=== PATIENT | male | born 1995 | race Caucasian/White ===

== ENCOUNTER 2016-09-05 16:32 | Emergency (ER) | payer BC ==
--- NOTE | 2016-09-05 16:48 | CPEKG ---
Heart Rate: 99 RR Interval: 606 P-R Interval: 128 QRSD Interval: 86 QT Interval: 348 QTC Interval: 447 P [place]: 67 QRS [place]: 50 T Wave [place]: 20 EKG Severity - NORMAL ECG - EKG Impression: SINUS RHYTHM Electronically Signed By: Imani Ramirez 06-Sep-2016 00:42:46
[2016-09-05] MEDS ORDERED: LORazepam 2 MG/ML INJ IVP ONE (17:15)
[2016-09-05] MEDS ORDERED: NS 1,000 ML IV ONE (17:15)
[2016-09-05 17:37] VITALS: RESP 20; O2SAT 94
[2016-09-05 17:41] LABS: % IMMATURE GRANULYOCYTES 0.5 % (0.0-1.1); ABSOLUTE IMMATURE GRANULOCYTES 0.04 10^3/uL (0.00-0.10); ADD DIFF? NO; ADD MORPH? NO; ADD SCAN? NO; ATYPICAL LYMPHOCYTE FLAG 20 (0-99); FRAGMENT RBC FLAG 0 (0-99); HEMATOCRIT 44.3 % (40.0-51.0); HEMOGLOBIN 15.8 g/dL (13.7-17.5); LEFT SHIFT FLG 10 (0-99); LIPEMIA HEMOLYSIS FLAG 90 (0-99); MEAN CELL HEMOGLOBIN 29.9 pg (27.9-34.1); MEAN CELL HEMOGLOBIN CONCENTR. 35.7 g/dL (32.4-36.7); MEAN CELL VOLUME 83.7 fL (81.5-99.8); MEAN PLATELET VOLUME 9.8 fL (8.7-11.7); PLATELET CLUMPS FLAG 0 (0-99); PLATELET COUNT 218 10^3/uL (150-400); RED BLOOD CELL COUNT 5.29 10^6/uL (4.40-6.38); RED CELL DISTRIBUTION WIDTH 12.4 % (11.5-15.2)
--- NOTE | 2016-09-05 17:45 | EDPHY ---
H & P Stated Complaint: etoh/cocaine last night today with cp and l arm numbness Time Seen by Provider: 09/05/16 16:47 HPI/ROS: CHIEF COMPLAINT: Chest pain, arm discomfort HISTORY OF PRESENT ILLNESS: 21-year-old male who presents reporting that approximately an hour and a half ago he developed discomfort in the left side of his chest, sensation of palpitations and pounding heart, as well as some numbness into his left arm. Patient reports that last night he drank heavy amount of alcohol, used cocaine, and smoked a cigarette. He denies use of methamphetamines. Reports he uses cocaine infrequently, perhaps 5 times in his life. No cardiac history. States he was fine when he woke up this morning, had no nausea, headache, or chest pain at that time. Denies any anxiety. No history of hypertension, diabetes, chronic smoking, hypercholesterolemia, family history of coronary artery disease. No recent fevers or chills, cough, infectious symptoms, no history of DVT or PE. REVIEW OF SYSTEMS: Aside from elements discussed in the HPI, a comprehensive 10-point review of systems was reviewed and is negative. PAST MEDICAL HISTORY: Denies. SOCIAL HISTORY: Recent alcohol. VITAL SIGNS Reviewed by me. Tachycardic at triage to 105, heart rate in 80s on my examination. Afebrile. GENERAL: Well-developed, well-nourished, seem somewhat anxious. HEENT: Atraumatic. Eyes: No icterus, no injection. Mouth: moist mucous membranes. No erythema or lesions. Neck: supple with no adenopathy. LUNGS: Clear to auscultation bilaterally, no wheezes, rhonchi or rales. CHEST: No rash, no tenderness palpation. No crepitus. CARDIAC: Regular rate and rhythm, no rubs, murmurs or gallops. ABDOMEN: Soft, nontender, nondistended, bowel sounds normal. BACK: No CVA tenderness. EXTREMITIES: No trauma. No edema. Range of motion is normal throughout. NEURO: Alert and oriented, grossly nonfocal. SKIN: Warm and dry, no rash. PSYCHIATRIC: Normal mentation, no agitation. - Personal History Current Tetanus/Diphtheria Vaccine: Yes - Medical/Surgical History Hx Asthma: No Hx Chronic Respiratory Disease: No Hx Diabetes: No Hx Cardiac Disease: No Hx Renal Disease: No Hx Cirrhosis: No Hx Alcoholism: No Hx HIV/AIDS: No Hx Splenectomy or Spleen Trauma: No Other PMH: denies - Social History Smoking Status: Current some day smoker Constitutional: Initial Vital Signs Temperature (C) 36.3 C 09/05/16 16:35 Heart Rate 105 H 09/05/16 16:35 Respiratory Rate 22 H 09/05/16 16:35 Blood Pressure 121/74 H 09/05/16 16:35 O2 Sat (%) 96 09/05/16 16:35 O2 Delivery Mode Room Air Allergies/Adverse Reactions: No Known Allergies Allergy (Unverified 09/05/16 16:35) Home Medications: Medication Instructions Recorded NK [No Known Home Meds] 09/05/16 Medical Decision Making - Diagnostics EKG Interpretation: 12-LEAD EKG: Please see the full report in [facility]. My interpretation: Sinus rhythm, rate of 99. No ischemic changes Imaging: Imaging Impressions Chest X-Ray 09/05/16 17:15 IMPRESSION: Normal chest x-ray. Images reviewed and interpreted independently by myself. ED Course/Re-evaluation: 21-year-old male presenting with chest discomfort and left arm discomfort after using cocaine last night. Patient has no cardiac risk factors other than his illicit drug use. Troponin is negative. EKG has no ischemic changes. Patient's symptoms were relieved with Ativan. Patient was instructed to stop using illicit drugs. Differential Diagnosis: After history and physical examination, the differential for chest pain was considered, including but not limited to, myocardial ischemia, acute coronary syndrome, chest wall pain, pleural inflammation, anxiety, and pulmonary infectious causes. - Data Points Laboratory Results: Laboratory Results 09/05/16 17:30 09/05/16 17:30 09/05/16 09/05/16 17:30 17:30 WBC 7.86 10^3/uL 10^3/uL (3.80-9.50) RBC 5.29 10^6/uL 10^6/uL (4.40-6.38) Hgb 15.8 g/dL g/dL (13.7-17.5) Hct 44.3 % % (40.0-51.0) MCV 83.7 fL fL (81.5-99.8) MCH 29.9 pg pg (27.9-34.1) MCHC 35.7 g/dL g/dL (32.4-36.7) RDW 12.4 % % (11.5-15.2) Plt Count 218 10^3/uL 10^3/uL (150-400) MPV 9.8 fL fL (8.7-11.7) Neut % (Auto) 73.1 % % (39.3-74.2) Lymph % (Auto) 16.2 % % (15.0-45.0) [place] % (Auto) 8.9 % % (4.5-13.0) Eos % (Auto) 0.8 % % (0.6-7.6) Baso % (Auto) 0.5 % % (0.3-1.7) Nucleat RBC Rel Count 0.0 % % (0.0-0.2) Absolute Neuts (auto) 5.75 10^3/uL 10^3/uL (1.70-6.50) Absolute Lymphs (auto) 1.27 10^3/uL 10^3/uL (1.00-3.00) Absolute Monos (auto) 0.70 10^3/uL 10^3/uL (0.30-0.80) Absolute Eos (auto) 0.06 10^3/uL 10^3/uL (0.03-0.40) Absolute Basos (auto) 0.04 10^3/uL 10^3/uL (0.02-0.10) Absolute Nucleated RBC 0.00 10^3/uL 10^3/uL (0-0.01) Immature Gran % 0.5 % % (0.0-1.1) Immature Gran # 0.04 10^3/uL 10^3/uL (0.00-0.10) Sodium 139 mEq/L mEq/L (134-144) Potassium 3.8 mEq/L mEq/L (3.5-5.2) Chloride 103 mEq/L mEq/L (97-110) Carbon Dioxide 26 mEq/l mEq/l (22-31) Anion Gap 10 mEq/L mEq/L (8-16) BUN 22 mg/dL mg/dL (7-23) Creatinine 1.0 mg/dL mg/dL (0.7-1.3) Estimated GFR > 60 Glucose 136 mg/dL H mg/dL (70-100) Calcium 9.6 mg/dL mg/dL (8.5-10.4) Troponin I < 0.012 ng/mL ng/mL (0-0.034) Lipase 130.0 IU/L IU/L (23-300) Medications Given: Discontinued Medications Sodium Chloride (Ns) 1,000 mls @ 0 mls/hr IV ONCE ONE PRN Reason: Wide Open Stop: 09/05/16 17:16 Last Admin: 09/05/16 17:34 Dose: 1,000 mls Ketorolac Tromethamine (Toradol) 15 mg IVP EDNOW ONE Stop: 09/05/16 18:29 Last Admin: 09/05/16 18:35 Dose: 15 mg Lorazepam (Ativan Injection) 1 mg IVP EDNOW ONE Stop: 09/05/16 17:16 Last Admin: 09/05/16 17:34 Dose: 1 mg Departure - Departure Disposition: Home, Routine, Self-Care Clinical Impression: Anxiety, Cocaine abuse, Chest pain in adult Condition: Good Instructions: Chest Pain (ED), Cocaine Abuse (ED), Anxiety (ED) Additional Instructions: Stop using illicit drugs. Stop drinking alcohol in excessive quantities. Return to the emergency department or seek care urgently if you have recurrent symptoms, developed worsening chest pain, palpitations, lightheadedness, fainting, cough, fevers, cold, or other concerns. Referrals: NONE *PRIMARY CARE P,. [Primary Care Provider] - As per Instructions Dmitry Perez MD [Medical Doctor] - As per Instructions
[2016-09-05 17:56] LABS: ANION GAP 10 mEq/L (8-16); CALCIUM 9.6 mg/dL (8.5-10.4); CARBON DIOXIDE 26 mEq/l (22-31); CHLORIDE 103 mEq/L (97-110); GLOMERULAR FILTRATION RATE > 60; GLUCOSE 136 mg/dL (70-100); POTASSIUM 3.8 mEq/L (3.5-5.2); SODIUM 139 mEq/L (134-144)
[2016-09-05 18:08] LABS: TROPONIN I < 0.012 ng/mL (0-0.034)
[2016-09-05] MEDS ORDERED: KETOROLAC 15 MG/1 ML SDV ONE (18:28)
[2016-09-05] MEDS ORDERED: KETOROLAC 15 MG/1 ML SDV IVP ONE (18:28)
[2016-09-05 18:54] VITALS: BP 119/53; PULSE 84; TEMP 98.4
== END 2016-09-05 18:54 | disposition home or self-care (01) ==
DX: F41.9 Anxiety disorder, unspecified (principal); F14.10 Cocaine abuse, uncomplicated; F17.210 Nicotine dependence, cigarettes, uncomplicated
CPT/HCPCS: 96374; J1885; J2060

== ENCOUNTER → 2018-05-04 | Outpatient (CLI) | payer OTHER ==
[~2018-05-04] MED LIST: GADOBUTROL 10 ML VIAL IVP ONE
== END ==
LOC: FIMAGING 12:17
PROVIDERS: ATTEND Psychiatry & Neurology Neurology
DX: R20.2 Paresthesia of skin (principal); R51 Headache
CPT/HCPCS: A9585